=== PATIENT | female | born 2005 | race Caucasian/White ===

== ENCOUNTER 2024-04-19 13:48 | Inpatient (IN) | payer MEDICAID, OTHER ==
[~2024-04-19] VITALS: Ht 154.9 cm; Wt 74.0 kg
[2024-04-19 14:24] LABS: COVID AG,FIA SOURCE NASAL SWAB
[2024-04-19 14:34] LABS: BASOPHILS % (AUTO) 0.5 % (0.0-2.0); EOSINOPHILS % (AUTO) 7.1 % (1.0-6.0); HEMATOCRIT 40.4 % (36-46); HEMOGLOBIN 13.2 g/dL (12.0-16.0); LYMPHOCYTES # (AUTO) 0.9 K/uL (1.0-4.8); MEAN CORPUSCULAR HEMOGLOBIN 28.9 pg (26.0-34.0); MEAN CORPUSCULAR HGB CONC 32.7 G/dL (31.0-37.0); MEAN CORPUSCULAR VOLUME 89 fL (80-100); MONOCYTES # (AUTO) 0.4 K/uL (0.1-1.0); MONOCYTES % (AUTO) 6.7 % (2.0-9.0); NEUTROPHILS % (AUTO) 70.7 % (40.0-70.0); PLATELET COUNT (AUTO) 255 K/uL (150-450); RED BLOOD CELL COUNT(AUTO) 4.57 MIL/uL (4.00-5.20); RED CELL DISTRIBUTION WIDTH 14.7 % (11.5-14.5); WHITE BLOOD COUNT (AUTO) 5.7 K/uL (4.5-11.0)
[2024-04-19 14:47] LABS: SARS-COV2 (COVID) ANTIGEN,FIA Negative (Negative)
[2024-04-19 14:53] LABS: ALCOHOL, BLOOD (SERUM) < 3 mg/dL (0-10)
[2024-04-19 14:54] LABS: ANION GAP 10 mmol/L (8-16); CALCIUM, TOTAL 9.4 mg/dL (8.8-10.5); CARBON DIOXIDE 27 mmol/L (22-29); CHLORIDE 105 mmol/L (98-107); CREATININE 0.69 mg/dL (0.60-1.30); GLOMERULAR FILTR. RATE CALC > 60 mL/min (>60); GLUCOSE,RANDOM 90 mg/dL (70-110); POTASSIUM 3.7 mmol/L (3.5-5.1); SODIUM SERUM 142 mmol/L (136-145); UREA NITROGEN, BLOOD 6 mg/dL (7-18)
[2024-04-19] MEDS ORDERED: TUBERCULIN, PURIFIED PROTEIN DERIVATIVE 5 TU/0.1 ML SYRINGE ID ONE (18:00)
[2024-04-19] MEDS ORDERED: HydrOXYzine PAMOATE 50 MG CAPSULE PO PRN (18:00)
[2024-04-19] MEDS ORDERED: MAG HYDROX/ALUMINUM HYD/SIMETH ES 30 ML SUSPENSION UDCUP PO PRN (18:00)
[2024-04-19] MEDS ORDERED: PROMETHAZINE HCL 25 MG TABLET PO PRN (18:00)
[2024-04-19] MEDS ORDERED: MAGNESIUM HYDROXIDE SUSPENSION 30 ML UDCUP PO PRN (18:00)
[2024-04-19] MEDS ORDERED: LOPERAMIDE HCL 2 MG CAPSULE PO PRN (18:00)
[2024-04-19] MEDS ORDERED: OLANZapine 5 MG RAPDIS TABLET PO PRN (18:00)
[2024-04-19] MEDS ORDERED: GuaiFENesin/D-METHORPHAN [SUGAR-FREE] 200-20MG/10 ML SYRUP UDCUP PO PRN (18:00)
[2024-04-19] MEDS ORDERED: ZOLPIDEM TARTRATE 10 MG TABLET PO PRN (18:00)
[2024-04-19] MEDS: THIAMINE 100 MG TABLET PO SCH (22:45)
[2024-04-19] MEDS: MELATONIN 5 MG TABLET PO SCH (22:46)
[2024-04-20] MEDS: LORazepam 2 MG TABLET PO PRN (01:19)
[2024-04-20] MEDS: ACETAMINOPHEN 325 MG TABLET PO PRN (01:19)
[2024-04-20 01:58] VITALS: BP 125/81; PULSE 80; RESP 17; TEMP 97.6; O2SAT 99
[2024-04-20 08:34] VITALS: BP 106/63; PULSE 96; RESP 17; TEMP 98.1; O2SAT 100
[2024-04-20 08:36] LABS: CHOL/HDL RATIO 3.1 (3.9-5.7); FREE T4 (FREE THYROXINE) 1.06 ng/dL (0.76-1.46); THYROID STIMULATING HORMONE 0.18 uIU/mL (0.36-3.74)
[2024-04-20 08:44] LABS: HEMOGLOBIN A1C 4.4 % (3.8-5.6)
[2024-04-20] MEDS: FOLIC ACID 1 MG TABLET PO SCH (09:45)
[2024-04-20] MEDS: OMEGA-3/DHA/EPA/FISH OIL 1,000 MG CAPSULE PO SCH (09:45)
[2024-04-20] MEDS: MULTIVITAMINS WITH MINERALS, THERAPEUTIC TABLET PO SCH (09:45)
[2024-04-20] MEDS: FLUoxetine HCL 20 MG CAPSULE PO SCH (09:46)
[2024-04-20 20:21] VITALS: BP 117/71; PULSE 97; RESP 17; TEMP 98.1; O2SAT 99
[2024-04-21 09:03] VITALS: BP 120/79; PULSE 95; RESP 17; TEMP 97.7; O2SAT 96
[2024-04-21] MEDS: FLUoxetine HCL 20 MG CAPSULE PO ONE (10:57)
[2024-04-21] MEDS: ONDANSETRON HCL 4 MG TABLET PO PRN (11:00)
[2024-04-21] MEDS ORDERED: MELA5TAB40 PO (13:05)
[2024-04-21] MEDS ORDERED: FLUO-418 PO (13:05)
[2024-04-21] MEDS ORDERED: OMEG-135 PO (13:05)
[2024-04-21 20:10] VITALS: BP 116/76; PULSE 94; RESP 18; TEMP 97.7; O2SAT 97
[2024-04-22 08:30] VITALS: BP 115/75; PULSE 87; RESP 19; TEMP 98; O2SAT 98
== END 2024-04-22 12:20 | disposition home or self-care (01) | DRG 751 ==
LOC: EMS 13:48 → B2S 18:50
PROVIDERS: ADMIT Psychiatry & Neurology Psychiatry; ATTEND Psychiatry & Neurology Psychiatry
PROC: GZHZZZZ Group Psychotherapy (ICD-10-PCS; principal; 2024-04-19)
PROC: GZ51ZZZ Individual Psychotherapy, Behavioral (ICD-10-PCS; 2024-04-19)
DX: F33.2 Major depressive disorder, recurrent severe without psychotic features (principal); R45.851 Suicidal ideations; E66.9 Obesity, unspecified; S61.512A Laceration without foreign body of left wrist, initial encounter; Z20.822 Contact with and (suspected) exposure to COVID-19; X78.1XXA Intentional self-harm by knife, initial encounter; Z55.9 Problems related to education and literacy, unspecified; Z59.9 Problem related to housing and economic circumstances, unspecified; Z63.9 Problem related to primary support group, unspecified; Z65.3 Problems related to other legal circumstances; Z85.3 Personal history of malignant neoplasm of breast; Z91.51 Personal history of suicidal behavior; Z91.52 Personal history of nonsuicidal self-harm; Y93.89 Activity, other specified; Y92.89 Other specified places as the place of occurrence of the external cause; Y99.8 Other external cause status; Z68.30 Body mass index [BMI] 30.0-30.9, adult; Z92.3 Personal history of irradiation
CPT/HCPCS: 80048; 80061; 83036; 84439; 84443; 85025; 86592; 99285; G0480; Q0162; Q9967